=== PATIENT | female | born 1980 | race Caucasian/White ===

== ENCOUNTER 2024-05-06 08:53 | Outpatient (CLI) | payer MEDICAID | END 2024-05-06 23:59 | disposition home or self-care (01) | LOC: RAD 08:53 | PROVIDERS: ATTEND Family Medicine | DX: M54.2 Cervicalgia (principal); M54.16 Radiculopathy, lumbar region | CPT/HCPCS: 72040; 72100; 72220 ==

== ENCOUNTER 2024-07-30 08:29 | Outpatient (CLI) | payer BC, MEDICAID ==
[2024-07-30 09:39] LABS: BASOPHILS # (AUTO) 0.1 X10'3 (0-0.2); BASOPHILS % (AUTO) 1.1 % (0-1); EOSINOPHILS # (AUTO) 0.2 X10'3 (0-0.9); HEMATOCRIT 39.1 % (35.0-45.0); HEMOGLOBIN 13.4 g/dl (12.0-16.0); LYMPHOCYTES # (AUTO) 1.5 X10'3 (1.1-4.8); LYMPHOCYTES % (AUTO) 26.6 % (21-51); MEAN CORPUSCULAR HEMOGLOBIN 31.7 PG (27.0-31.0); MEAN CORPUSCULAR HGB CONC 34.3 g/dL (33.0-36.5); MEAN CORPUSCULAR VOLUME 92.4 FL (78-98); MONOCYTES # (AUTO) 0.4 X10'3 (0-0.9); MONOCYTES % (AUTO) 6.6 % (2-12); NEUTROPHILS # (AUTO) 3.4 X10'3 (1.8-7.7); NEUTROPHILS % (AUTO) 61.7 % (42-75); PLATELET COUNT 437 X10'3 (140-440); RED BLOOD COUNT 4.23 X10'6 (4.20-5.60); RED CELL DISTRIBUTION WIDTH 13.2 % (11.5-14.5); WHITE BLOOD COUNT 5.6 X10'3 (4.5-11.0)
[2024-07-30 09:42] LABS: BILIRUBIN,URINE NEGATIVE (Neg); CLARITY,URINE CLEAR (Clear); COLOR,URINE YELLOW (Yellow); GLUCOSE, URINE NEGATIVE (Neg); KETONES,URINE NEGATIVE (Neg); LEUKOCYTE ESTERASE ,URINE NEGATIVE (Neg); NITRITES, URINE NEGATIVE (Neg); OCCULT BLOOD,URINE NEGATIVE (Neg); PROTEIN,URINE NEGATIVE (Neg); UROBILINOGEN,URINE 0.2 E.U/dL (0.2-1.0)
[2024-07-30 09:55] LABS: UA COLLECTION TYPE NON-SPECIFIED
[2024-07-30 09:58] LABS: HEMOGLOBIN A1C 4.7 % (4.5-6.2)
[2024-07-30 10:18] LABS: ALANINE AMINOTRANSFERASE 28 U/L (12-78); ALBUMIN 3.7 G/DL (3.4-5.0); ALBUMIN/GLOBULIN RATIO 1.1 (1.1-1.5); ALKALINE PHOSPHATASE 47 IU/L (46-116); ANION GAP 6 (8-16); ASPARTATE AMINO TRANSFERASE 16 U/L (10-37); BILIRUBIN,TOTAL 0.8 MG/DL (0.1-1.0); BLOOD UREA NITROGEN 16 MG/DL (7-18); BUN/CREATININE RATIO 32.7 (10.0-20.0); C-REACTIVE PROTEIN 0.67 MG/DL (0.0-0.5); CALCIUM 9.3 MG/DL (8.5-10.1); CHLORIDE 105 MMOL/L (99-107); CHOL/HDL RATIO 1.9 (0.00-4.99); CHOLESTEROL 185 MG/DL (0-200); CREATININE 0.49 MG/DL (0.40-0.90); GLUCOSE 74 MG/DL (70-104); HDL CHOLESTEROL 96 MG/DL (35-60); LDL CHOLESTEROL 74 MG/DL (50-100); POTASSIUM 3.9 MMOL/L (3.5-5.1); SODIUM 141 MMOL/L (135-145); TOTAL CARBON DIOXIDE 30.2 MMOL/L (24-32); TOTAL PROTEIN 7.1 G/DL (6.4-8.2); TRIGLYCERIDES 31 MG/DL (20-135); eGFR > 90 ML/MIN
[2024-07-31 11:29] LABS: COMPLEMENT C3, SERUM 120 mg/dL (82-167); COMPLEMENT C4, SERUM 23 mg/dL (12-38)
[2024-07-31 15:18] LABS: ANTINUCLEAR ANTIBODIES Negative (Negative); ANTISCLERODERMA-70 ANTIBODIES <0.2 AI (0.0-0.9)
[2024-08-01 08:09] LABS: THYROXINE (T4) 7.1 ug/dL (4.5-12.0)
[2024-08-02 15:10] LABS: CCP IGG ANTIBODIES 5 units (0-19)
== END 2024-07-30 23:59 | disposition home or self-care (01) ==
LOC: LAB 08:29
PROVIDERS: ATTEND Family Medicine
DX: E07.9 Disorder of thyroid, unspecified (principal); E78.5 Hyperlipidemia, unspecified; F32.A Depression, unspecified; F41.1 Generalized anxiety disorder; M06.9 Rheumatoid arthritis, unspecified; M35.9 Systemic involvement of connective tissue, unspecified; M79.7 Fibromyalgia; R73.09 Other abnormal glucose; Z79.899 Other long term (current) drug therapy; Z82.61 Family history of arthritis; Z84.0 Family history of diseases of the skin and subcutaneous tissue
CPT/HCPCS: 36415; 80053; 80061; 81003; 83036; 84436; 84443; 85025; 85651; 86038; 86140; 86147; 86160; 86200; 86235; 86431

== ENCOUNTER 2024-10-22 08:32 | Emergency (ER) | payer BC, MEDICAID, OTHER ==
[~2024-10-22] VITALS: Ht 166.4 cm; Wt 72.7 kg
[2024-10-22 08:46] VITALS: BP 151/79; PULSE 82; RESP 18; TEMP 98.6; O2SAT 100
--- NOTE | 2024-10-22 09:40 | Physician Documentation ---
History of Present Illness ~ Chief Complaint: Laceration Stated Complaint: HEAD LAC Time Seen by MD: 08:52 HPI Patient tripped and fell and the straw from her drink hit her in the forehead. She has no loss of consciousness. Medication Reconciliation Allergies: Coded Allergies: No Known Allergies (Unverified , 10/22/24) Review of Systems All Other Systems at this time: Reviewed and Negative Physical Exam Vital Signs: Temperature: 98.6, Source: Temporal, Heart Rate: 82, Respiratory Rate: 18, BP: 151/79, Pulse Oximetry: 100, Weight: 72.730 Oxygen Flow Rate: 0 Physical Exam Awake alert oriented 1 cm superficial laceration right anterior forehead Procedures Laceration/Wound Repair Laceration : Anesthesia: Lidocaine Undermining: none Repaired: skin Wound Repaired With: Dermabond Tolerated Procedure Well?: yes, no complications Progress Results/Orders Results/Orders Vital Signs 10/22/24 08:46 Temp 98.6 Pulse 82 Resp 18 B/P (MAP) 151/79 Pulse Ox 100 O2 Flow Rate 0 Departure Disposition: 01 HOME / SELF CARE / HOMELESS Impression: Primary Impression: Laceration Referrals: NO PRIMARY CARE PROVIDER (PCP) Signature Scribe Signature: No scribe Attestation: No scribe FUNMI MCBRIDE MD October 22, 2024 09:40
== END 2024-10-22 10:11 | disposition home or self-care (01) ==
LOC: ER 08:33
DX: S01.81XA Laceration without foreign body of other part of head, initial encounter (principal); W01.0XXA Fall on same level from slipping, tripping and stumbling without subsequent striking against object, initial encounter; Y93.89 Activity, other specified; Y92.89 Other specified places as the place of occurrence of the external cause; Y99.8 Other external cause status
CPT/HCPCS: 12011; 99282; A6449

== ENCOUNTER 2024-12-09 07:19 | Outpatient (CLI) | payer BC ==
--- NOTE | 2024-12-09 10:15 | RADIOLOGY REPORT ---
[facility] INDICATION: LEFT SIDED RIB PAIN COMPARISON: None TECHNIQUE:4 views of the thoracic spine were obtained. FINDINGS: The thoracic vertebral alignment is normal. The intervertebral disc spaces are well-maintained. No significant facet arthropathy is noted. No acute fracture, vertebral compression deformity or aggressive osseous lesions. The imaged thorax and abdomen are grossly unremarkable. IMPRESSION: No acute fracture.
--- NOTE | 2024-12-09 10:16 | RADIOLOGY REPORT ---
[facility] EX[facility]: DI RIBS,UNILAT INDICATION: LEFT SIDED RIB PAIN, L THORACIC PAIN COMPARISON: None TECHNIQUE: Frontal view of the chest and 4 views of the left ribs FINDINGS: No focal consolidation, pleural effusion or significant pneumothorax. Normal cardiomediastinal silhou ette. No displaced left rib fracture. IMPRESSION: No acute cardiopulmonary disease. No displaced left rib fracture.
== END 2024-12-09 23:59 | disposition home or self-care (01) ==
LOC: RAD 07:19
PROVIDERS: ATTEND Family Medicine
DX: M54.6 Pain in thoracic spine (principal); R07.81 Pleurodynia
CPT/HCPCS: 71100; 72070

== ENCOUNTER 2025-02-04 08:39 | Outpatient (CLI) | payer BC ==
--- NOTE | 2025-02-04 09:37 | RADIOLOGY REPORT ---
CLINICAL HISTORY: LEFT FLANK PAIN TECHNIQUE: Complete ultrasound exam of the abdomen was performed. COMPARISON: None FINDINGS: The liver is normal in echogenicity with no focal parenchymal abnormality. The liver measures 14 cm in length. The common duct is 1 mm. Gallbladder contains stones with no wall thickening or pericholecystic fluid The pancreas is not well seen. No ascites or fluid collection. The right kidney is 10.5 cm and the left kidney is 12.8 cm. No hydronephrosis, increased echogenicity, shadowing stone, or focal lesion. Spleen is within normal limits. The visualized aorta and IVC are normal caliber and patent. IMPRESSION: Cholelithiasis.
== END 2025-02-04 23:59 | disposition home or self-care (01) ==
LOC: RAD 08:39
PROVIDERS: ATTEND Family Medicine
DX: K80.20 Calculus of gallbladder without cholecystitis without obstruction (principal); R10.9 Unspecified abdominal pain; M54.9 Dorsalgia, unspecified; R11.0 Nausea
CPT/HCPCS: 76700